=== PATIENT | female | born 1975 | race Caucasian/White ===

== ENCOUNTER 2016-09-14 10:50 | Observation (INO) ==
[2016-09-14] MEDS ORDERED: ONDANSETRON 4 MG/2 ML VIAL IV PRN (11:20)
[2016-09-14] MEDS ORDERED: BISACODYL 10 MG SUPP RECTAL PRN (11:20)
[2016-09-14] MEDS ORDERED: MAGNESIUM HYDROXIDE SUSP 30 ML UDCUP PO PRN (11:20)
[2016-09-14] MEDS ORDERED: MAGNESIUM SULF DRIP 40 GM/1,000 ML ML IV SCH (11:30)
[2016-09-14 11:57] LABS: Basophils % 0.5 % (0.0-0.8); Eosinophils # 0.2 10*3/uL (0.0-0.87); Eosinophils % 2.7 % (0.00-10.9); Hematocrit 37.3 VOL% (35.7-47.0); Hemoglobin 12.2 GM/DL (12.0-16.0); Immature Granulocytes % 1.5 %; Immature Granulocytes Absolute 0.12 #; Lymphocytes # 1.5 10*3/uL (1.4-4.0); Lymphocytes % 18.7 % (21.3-54.2); Mean Corpuscular HGB Conc 32.7 GM/DL (32-36); Mean Corpuscular Hemoglobin 32 PG (27-34); Mean Corpuscular Volume 98.7 FL (87-102); Mean Platelet Volume 9.1 FL (9.6-12.0); Monocytes # 0.5 10*3/uL (0.11-0.8); Neutrophils # 5.6 10*3/uL (1.4-7.4); Neutrophils % 70.6 % (38.7-73.9); Platelet Count 415 T/CUMM (130-400); Red Blood Count 3.78 MC/CUMM (3.8-5.5); Red Cell Distribution Width 13.5 % (9.3-17.3); White Blood Count 7.9 T/CUMM (4-12)
[2016-09-14 12:18] LABS: Alanine Aminotransferase 32 U/L (13-56); Albumin 3.4 G/DL (3.4-5.0); Alkaline Phosphatase 99 U/L (45-117); Aspartate Amino Transferase 29 U/L (0-37); Bilirubin,Total < 0.39 MG/DL (0.2-1.0); Blood Urea Nitrogen 10 MG/DL (7-18); Calcium 8.8 MG/DL (8.5-10.1); Glucose 83 MG/DL (74-106); Potassium 3.6 MMOL/L (3.5-5.1); Sodium 143 MMOL/L (136-145); Total Protein 7.1 G/DL (6.4-8.3)
[2016-09-14] MEDS: ACETAMINOPHEN 325 MG TABLET PO PRN (13:00)
[2016-09-14] MEDS: LABETALOL 200 MG TABLET PO SCH ×2 (14:41→21:00)
[2016-09-14] MEDS ORDERED: LACTATED RINGERS 1,000 ML IV SCH (16:00)
--- NOTE | 2016-09-14 17:06 | OB/GYN History & Physical ---
History of Present Illness Chief complaint: headache , elevated BP History of present illness: Ms. Neff is a 41 year old female who had a repeat on 09/08/16 in [place] at 37 weeks due to history of a prior classical c-seciton came in the day before yesterday complaining of a headache and elevated BP. her BP in the office was high and the pt opted to try to manage her BPs at home . Her BPs were still high at home while on labetolol and she came in again today with headaches. Home Medications Medication Instructions Recorded Confirmed Type Ferrous Sulfate 325 mg PO BID 09/14/16 09/14/16 History Allergies Allergy/AdvReac Type Severity Reaction Status Date / Time Penicillins Allergy Severe HIVES Verified 08/31/16 13:13 Medical,Surgical,& Family Hx - Medical History Cardio: History of: Hypertension (WITH ) No history of: Aneurysm, Cardiac Dysrhythmia, Cerebrovascular Disease, Congenital Heart Disease, CHF, CAD, DC, Pacemaker, PVD, Valvular Heart Disease, Cardiovascular Problems Psychological: No history of: Anxiety Disorders, ADHD, Behavior Problems, Bipolar Disorder, Depression, Previous Suicide Attempt, Psychiatric/Substance Abuse Tx, Schizophrenia, Violent Behavior, Psychiatric Problems Neurology: No history of: Brain Aneurysm, Cerebral Hemorrhage, Cerebrovascular Accident , Cerebral Palsy, Dementia, Migraine, Multiple Sclerosis, Parkinson's Disease, Peripheral Neuropathy, Seizures, TIA, Vertigo, Neurologocal Cancer HEENT: No history of: Ear Problem, Eye Problem, Dental Problems, Glaucoma, Oral Cancer, HEENT Problems Endocrine: No history of: Adrenal Disease, Diabetes Mellitus (IDDM), Diabetes Mellitus ( NIDDM), Dyslipidemia, Thyroid Disorder, Endocrine Cancer, Endocrine Problems Rheumatology: No history of;: Psoriasis, Sjogrens, Systemic Lupus Erythematosus Respiratory: No history of: Asthma, Bronchitis, COPD, Intubation, Obstructive Sleep Apnea , Pulmonary Embolism, Pulmonary Hypertension, Pneumonia, Lung Cancer, Respiratory Problems Renal: No history of: Renal (Kidney) Cancer, Dialysis, Renal Failure, Renal Problems Genitourinary: History of: Kidney Stones (IN 2000 AND 2001) No history of: Bladder Problem, Recurring Urinary Tract Infections, Genitourinary Cancer, Problems Gastrointestinal: No history of: Bowel Obstruction, Clostridium Difficile, Crohn's Disease, Diverticulitis/ Diverticulosis, Esophageal Varices, GERD, Gastrointestinal Bleed , Hemorrhoids, Hematochezia, Hepatitis, Liver Problems, Pancreatitis, Polyps, Ulcerative Colitis, Gastrointestinal Cancer, GI Problems Musculoskeletal: No history of: Amputation Hematology: No history of: Anemia, Blood Transfusion Reaction, Bleeding Problems, Clotting Problems, Sickle Cell Disease, Hematologic Cancer, Blood Disorders Reproductive: No history of: Abnormal Pap Smear, Breast Cancer, Endometriosis, Ectopic , Ovarian Cysts, Complication, Sexually Transmitted Disorders , Reproductive Cancer, Reproductive Problems Other: No history of: Anesthesia Reactions, Anaphylaxis, Cancer, Eczema, HIV, Malignant Hyperthermia, MRSA, Vancomycin-Resistant Enterococci, Skin Problems, Miscellaneous Medical Problems - Surgical History Cardiac Surgeries: Sugical HX of: Cardiac Catheterization (2 PRIOR C SECTIONS) Patient Denies: Femoral-Popliteal Bypass Graft, Carotid Endarterectomy, Internal Defibrillator, Vascular Access Devices Thoracic Surgeries: Patient denies;: Kidney (Renal Surgery), Lithotripsy, Nephrectomy, Organ Transplant, Lobectomy Neurologic Surgeries: Patient denies: Brain Aneurysm, Cerebral Hemorrhage, Neurologic Surgery HEENT Surgeries: Patient denies: Carotid Endarterectomy, Eye Surgery, Thyroid Surgery, Tonsilectomy & Adenoidectomy Abdominal Surgeries: Patient denies: Abdominal Surgery, Appendectomy, Cholecystectomy, Colonoscopy , Gastric Bypass Surgery, EGD, Hernia Repair, Splenectomy Reproductive Surgeries: Surgical HX of;: Section Patient denies;: Breast Surgery, Cystoscopy, Dilation and Curettage, Genitourinary Surgery, Gynecologic Surgery, Hysterectomy, Tubal Ligation Orthopedic Surgeries: Patient denies;: Implanted Devices, Orthopedic Surgery, Spinal Surgery, Total Hip Replacement, Total Knee Replacement - Family History Family History: Reports;: Family Heart Disease (FATHER HEART ATTACK AGE 47), Additional Family History (KIDNEY STONE FATHER AGE 43 MOTHER HYPOTHYROID) Denies;: Family Anesthesia Reaction, Family Cancer, Family Diabetes, Family Hematology, Family Hypertension, Family Psychiatric Problems, Family Stroke - Social History Smoking Status: Never smoker Frequency of Alcohol Use: None Type of Drug Use: None 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 Absent: guarding, rebound - Extremities Exam Extremities exam: Absent: calf tenderness - Neurological Exam Neurological exam: Present: alert, oriented X3 - Psychiatric Psychiatric exam: Present: normal affect, normal mood - Skin Skin exam: Present: normal color Assessment and Plan (1) Preeclampsia in period Status: Acute Assessment and plan: admit for 23 hours obs for BP control and seizure prophylaxis. Current Visit: Yes Results - Labs CBC & BMP: 09/14/16 11:39 09/14/16 11:39
[2016-09-14] MEDS: DOCUSATE SODIUM 100 MG CAPSULE PO SCH (21:00)
[2016-09-15] MEDS: ACETAMINOPHEN 325 MG TABLET PO PRN (04:10)
[2016-09-15] MEDS ORDERED: SIMETHICONE CHEW 80 MG TABLET PO PRN (07:18)
--- NOTE | 2016-09-15 08:42 | Discharge Summary ---
Hospital Course - Hospital Course Hospital Course: This is a 41 y/o who was admitted yesterday for BP control. The pt had a repeat last week . Her BPs were 150-160s/80-100s at home and so she was admitted for mag sulfate and BP control. Her BPs became better controlled adn she diuriesed well . Diagnosis - Discharge Diagnosis (1) Preeclampsia in period Status: Acute Specialty Discharge - Follow Up or Referrals Follow up with: Anita Joseph MD [Physician] - 1 Week Discharge Plan - Discharge Data Disposition: Disch To Home/Self Care Condition at Discharge: Stable Discharge Diet: advance to your usual diet, low salt diet Activity: resume usual activities as tolerated Hygiene: may shower Weight Bearing at Discharge: full weight bearing Contact your physician if you experience:: fever over 101, Difficulty voiding, Redness or swelling, Nausea/Vomiting, Shortness of breath, Bleeding, pain uncontrolled by pain medications - Discharge Medications No Action Ferrous Sulfate 325 mg PO BID - Follow Up or Referral - Forms/Instructions Additional Discharge Instructions: increase labetalol to 200mg TID. The pt has her medication already Exam - Constitutional Vitals: Period Temp Pulse Resp BP Sys/Rene Pulse Ox Last 24 Hr 97.3 F-98.8 F 64-84 18-22 119-148/69-101 95-100 General appearance: normal weight, no acute distress - Respiratory Respiratory exam: Absent: accessory muscle use - Cardiovascular Cardiovascular exam: Present: regular rate and rhythm - GI/Abdominal GI/Abdominal exam: Present: soft. Absent: guarding, rebound - Extremities Exam Extremities exam: Absent: calf tenderness - Neurological Exam Neurological exam: Present: alert, oriented X3 - Psychiatric Psychiatric exam: Present: normal affect, normal mood - Skin Skin exam: Present: normal color Discharge Results Procedures and tests throughout hospitalization: Pending Orders 09/15/16 13:00 Magnesium Routine Labs on day of discharge: Labs from last 24 hours 09/15/16 09/15/16 09/14/16 06:34 01:45 20:16 WBC RBC Hgb Hct MCV MCH MCHC RDW Plt Count MPV Neut % (Auto) Lymph % (Auto) [place] % (Auto) Eos % (Auto) Baso % (Auto) Neut # (Auto) Lymph # (Auto) [place] # (Auto) Eos # (Auto) Baso # (Auto) Immature Gran % Nucleated RBC % Immature Gran # Nucleated RBCs # Sodium Potassium Chloride Carbon Dioxide Anion Gap BUN Creatinine GFR Calculation BUN/Creatinine Ratio Glucose Calculated Osmolality Calcium Magnesium 6.3 H 5.6 H 6.1 H Total Bilirubin AST ALT Alkaline Phosphatase Total Protein Albumin Globulin Albumin/Globulin Ratio 09/14/16 09/14/16 11:39 11:39 WBC 7.9 RBC 3.78 L Hgb 12.2 Hct 37.3 MCV 98.7 MCH 32 MCHC 32.7 RDW 13.5 Plt Count 415 H MPV 9.1 L Neut % (Auto) 70.6 Lymph % (Auto) 18.7 L [place] % (Auto) 6.0 Eos % (Auto) 2.7 Baso % (Auto) 0.5 Neut # (Auto) 5.6 Lymph # (Auto) 1.5 [place] # (Auto) 0.5 Eos # (Auto) 0.2 Baso # (Auto) 0.0 Immature Gran % 1.5 Nucleated RBC % 0.0 Immature Gran # 0.12 Nucleated RBCs # 0.00 Sodium 143 Potassium 3.6 Chloride 107 Carbon Dioxide 27 Anion Gap 12.6 BUN 10 Creatinine 0.70 GFR Calculation 120 BUN/Creatinine Ratio 14.00 Glucose 83 Calculated Osmolality 282.0 Calcium 8.8 Magnesium Total Bilirubin < 0.39 AST 29 ALT 32 Alkaline Phosphatase 99 Total Protein 7.1 Albumin 3.4 Globulin 3.7 H Albumin/Globulin Ratio 0.9 L DS: Provider Date of admission: 09/14/16 11:14 Primary care physician: . No PCP Attending physician on admission: Anita Adorno- Discharging clinician: Anita Adorno-
[2016-09-15] MEDS: DOCUSATE SODIUM 100 MG CAPSULE PO SCH (09:00)
[2016-09-15] MEDS: LABETALOL 200 MG TABLET PO SCH (09:00)
[2016-09-15 10:56] VITALS: BP 128/85
== END 2016-09-15 10:50 | disposition home or self-care (01) ==
LOC: N.OB
PROVIDERS: ADMIT Obstetrics & Gynecology; ATTEND Obstetrics & Gynecology